=== PATIENT | male | born 1995 | race Hispanic/Latino ===

== ENCOUNTER 2024-08-06 13:35 | Emergency (ER) | payer SELFPAY ==
[~2024-08-06] VITALS: Ht 165.1 cm; Wt 66.6 kg
[2024-08-06] MEDS ORDERED: NAPROXEN250 MG PO (14:08)
[2024-08-06] MEDS ORDERED: ISOVUE-300 (Iopamidol) 100 ML SDV IV ONE (15:15)
[2024-08-06] MEDS ORDERED: ONDANSETRON HCl 4 MG/2 ML SDV IV ONE (15:20)
[2024-08-06] MEDS ORDERED: SODIUM CHLORIDE 0.9% 1,000 ML IV ONE (15:20)
[2024-08-06] MEDS ORDERED: KETOROLAC TROMETHAMINE 30 MG/ML SDV IV ONE (15:20)
[2024-08-06 15:34] LABS: URINE BILIRUBIN - DIPSTICK Negative (NEGATIVE); URINE BLOOD DIPSTICK Negative (NEGATIVE); URINE COLOR Yellow; URINE GLUCOSE - DIPSTICK Negative (NEGATIVE); URINE KETONE Negative (NEGATIVE); URINE LEUK ESTERASE Negative (NEGATIVE); URINE NITRITE - DIPSTICK Negative (Negative); URINE PH 5.5 (4.5-8.0); URINE PROTEIN - DIPSTICK Negative (NEG-TRACE); URINE UROBILINOGEN - DIPSTICK 0.2 E.U./dL (0.2)
[2024-08-06 15:37] LABS: BASO% 0.3 % (0-3); EOS% 0.1 % (0-8); HEMATOCRIT 43.1 % (39.0-50.0); HEMOGLOBIN 14.7 g/dl (14.0-18.0); IMMATURE GRANULOCYTES 0.2 % (0.0-5.0); MEAN CELL VOLUME 85.5 fL CALC (80.0-100.0); MEAN CORPUSCULAR HGB 29.2 pG CALC (26.0-32.0); MEAN CORPUSCULAR HGB CONC 34.1 g/dL CAL (32.0-36.0); MONO% 9.8 % (2-13); NEUT# 9.36 thou/uL (1.82-7.42); NEUT% 75.6 % (42-76); RED BLOOD COUNT 5.04 mill/uL (4.70-6.10); RED CELL DISTRI WIDTH 12.1 % (11.5-15.5)
[2024-08-06 15:58] LABS: ALBUMIN 4.9 g/dL (3.2-5.0); BILIRUBIN, TOTAL 0.7 mg/dL (0.2-1.3); CREATININE 0.7 mg/dL (0.7-1.3); POTASSIUM 3.5 mmol/l (3.5-5.1); TOTAL PROTEIN 8.4 g/dL (6.3-8.2)
[2024-08-06 18:04] VITALS: BP 109/67
[2024-08-06] MEDS ORDERED: ONDANSETRON4 MG PO (18:07)
[2024-08-06 18:11] VITALS: BP 109/67
== END 2024-08-06 18:11 | disposition home or self-care (01) | DRG 392 ==
LOC: ED 13:35
PROVIDERS: Nurse Practitioner
DX: R10.13 Epigastric pain (principal); R10.30 Lower abdominal pain, unspecified; R11.2 Nausea with vomiting, unspecified
CPT/HCPCS: J2405; Q9967